=== PATIENT | male | born 1990 | race Caucasian/White ===

== ENCOUNTER 2019-12-02 14:51 | Emergency (ER) | payer BC, OTHER ==
[2019-12-03 14:48] LABS: SARS-CoV-2 MS2 Positive; SARS-CoV-2 N Gene Positive; SARS-CoV-2 S Gene Positive; SARS-CoV-2 orf1ab Positive
== END 2019-12-02 16:15 | disposition home or self-care (01) ==
LOC: ERS 14:51
DX: U07.1 COVID-19 (principal)
CPT/HCPCS: 87635; 99284; U0003